=== PATIENT | female | born 1960 ===

== ENCOUNTER 2020-10-17 02:46 | Inpatient (IN) | payer MEDICAID ==
[~2020-10-17] VITALS: Ht 170.2 cm; Wt 78.0 kg
--- NOTE | 2020-10-17 03:05 | NUR ---
Note cam in EDM - 10/17/20 at 0306 by [email or web address] Patient is SLEEPING comfortably in bed. Bed in lowest, rails engaged, call light on lap. Vital Signs within normal limits. WCTM. AWAITING TO BE BROUGHT TO FLOOR.
[2020-10-17] MEDS ORDERED: NALOXONE 1 MG/ML, 2ML ONE (03:13)
--- NOTE | 2020-10-17 03:19 | NUR ---
ARVIND AFTER BEING FOUND IN CAR AT THE [facility]. PT WAS FOUND ALTERED AND DELISUIONAL. PT ABLE TO ANSWER QUESTIONS ABOUT HER HEALTH HISTORY BUT DOES NOT KNOW WHERE SHE IS OR THE DATE. PT ALSO STATES SHE IS ON 3 L OXYGEN FOR HX OF COPD AND WAS FOUND WITH NO O2 BUT A TANK WAS NEXT TO HER. UPON ARRIVAL TO ER PT BECAME HYPOTENSIVE AND LETHARGIC. DR BARTLETT AT BEDSIDE WITH US FOR EXAM, 2 PIV ESTABLISHED AND 1L NS BOLUS GIVEN THROUGH PRESSURE BAG. NARCAN GIVEN, PT NOW NORMAL TENSIVE AND MORE RESPONSIVE. VERBAL ORDERS FOR ZOFRAN FRM DR BARTLETT.
[2020-10-17] MEDS ORDERED: ONDANSETRON 2MG/ML, 2ML ONE (03:20)
[2020-10-17] MEDS ORDERED: SODIUM CHLORIDE 0.9% 1,000ML IVBOLUS ONE (03:30)
[2020-10-17 03:31] LABS: BASOPHILS % (AUTO) 0 % (0-1); EOSINOPHILS % (AUTO) 0 % (1-7); LYMPHOCYTES % (AUTO) 9 % (22-44); MEAN CORPUSCULAR HEMOGLOBIN 32.2 pg (27.0-34.8); MEAN CORPUSCULAR HGB CONC 34.7 g/dL (32.4-35.8); MEAN PLATELET VOLUME 7.5 fL (7.4-10.4); MONOCYTES % (AUTO) 17 % (2-9); NEUTROPHILS % (AUTO) 74 % (42-75); PLATELET COUNT 316 x10^3/uL (130-400); RED BLOOD COUNT 4.71 x10^6/uL (3.82-5.3); RED CELL DISTRIBUTION WIDTH 13.7 % (9.6-15.2)
--- NOTE | 2020-10-17 03:37 | NUR ---
pt to ct
[2020-10-17 03:46] LABS: D-DIMER 0.79 ug/mlFEU (0.00-0.52); INTERNATIONAL NORMALIZED RATIO 1.02 (0.93-1.1); MD NO; PROTHROMBIN TIME 10.9 Seconds (9.6-11.5)
[2020-10-17 03:47] LABS: ALBUMIN 3.9 g/dL (3.4-5.0); ANION GAP 9 mmol/L (5-15); CALCIUM 9.7 mg/dL (8.5-10.1); CHLORIDE 107 mmol/L (98-107); SALICYLATE LEVEL 7.5 mg/dL (2.8-20.0)
[2020-10-17 03:51] LABS: ALANINE AMINOTRANSFERASE 41 U/L (12-78); ALKALINE PHOSPHATASE 101 U/L (45-117); BILIRUBIN,TOTAL 0.8 mg/dL (0.2-1.0); CREATININE 3.21 mg/dL (0.55-1.02); TOTAL PROTEIN 8.4 g/dL (6.4-8.2); TROPONIN I < 0.015 ng/mL (0.000-0.045)
[2020-10-17] MEDS ORDERED: DEXTROSE 50%, 50ML SYRINGE IVPush ONE (04:30)
[2020-10-17] MEDS ORDERED: INSULIN REGULAR 100 UNITS/ML, 3ML VIAL IVPush ONE (04:30)
[2020-10-17] MEDS ORDERED: SODIUM BICARB 8.4%, 50ML SYRINGE IVPush ONE (04:30)
[2020-10-17] MEDS ORDERED: CALCIUM CHLORIDE 10%, 10ML SYR IVPush ONE (04:30)
[2020-10-17] MEDS ORDERED: OMNIPAQUE 350 MG/ML, 75ML BOTTLE ONE (04:47)
[2020-10-17] MEDS ORDERED: DEXTROSE 50%, 50ML SYRINGE ONE (05:09)
[2020-10-17] MEDS ORDERED: SODIUM BICARB 8.4%, 50ML SYRINGE ONE (05:09)
[2020-10-17] MEDS ORDERED: CALCIUM CHLORIDE 10%, 10ML SYR ONE (05:09)
[2020-10-17] MEDS ORDERED: INSULIN SINGLE DOSE, ER ONE (05:09)
[2020-10-17] MEDS ORDERED: ONDANSETRON 2MG/ML, 2ML IVPush ONE (05:30)
[2020-10-17] MEDS ORDERED: NALOXONE 1 MG/ML, 2ML IVPush ONE (05:30)
--- NOTE | 2020-10-17 06:04 | NUR ---
PT LETHARGIC, AROUSABLE TO NAME. RESP EVEN AND UNLABORED
[2020-10-17] MEDS: PLEASE ENTER ALLERGIES MC SCH ×3 (07:00→11:01)
[2020-10-17] MEDS ORDERED: ACETAMINOPHEN 325 MG TABLET PO PRN (07:00)
[2020-10-17] MEDS ORDERED: SODIUM CHLORIDE 0.9% 1,000 ML IV SCH (07:00)
--- NOTE | 2020-10-17 07:06 | NUR ---
per ems report, [facility] has pts ID card. they recieved a call on scene when they were with this pt and took off with ID. Info passed on in bedside report to Conner ROLLINS.
--- NOTE | 2020-10-17 07:13 | NUR ---
Report received, bedside pt assessment with meringuer RN completed and US tech finishing up exam and lab at bedside for draw. Pt drowsy and VSS at t this time. Orders noted, lab results and radiology results reviewed for those done last night and posted, and pt needs UA sample sent when able/awaiting bed assignement on Med/Tele floor.
--- NOTE | 2020-10-17 07:48 | NUR ---
Pt found with jeans half one and incontinence brief in use with moderate amount present. Pericare completed and pt disrobed. Placed on chucks pad and repositioned in bed with HOB elevated. Full assessment completed. Report given via telephone to RIA De [place] and pt readied for transfer to floor.
[2020-10-17 07:54] LABS: TROPONIN I < 0.015 ng/mL (0.000-0.045)
[2020-10-17 08:06] VITALS: BP 133/81
[2020-10-17] MEDS: HEPARIN 5,000 UNITS/ML, 1ML SQ SCH ×2 (12:06→19:53)
[2020-10-17 12:27] LABS: MICROSCOPIC NOT IND
[2020-10-17 12:28] VITALS: BP 119/81
[2020-10-17 12:37] LABS: CHLORIDE,URINE RANDOM 68 mmol/L; POTASSIUM,URINE RANDOM 64 mmol/L; SODIUM,URINE RANDOM 49 mmol/L
[2020-10-17 12:39] LABS: CREATINE KINASE, TOTAL 513 U/L (26-192); TROPONIN I < 0.015 ng/mL (0.000-0.045)
[2020-10-17 12:41] LABS: AMPHETAMINE SCREEN, URINE Positive (Negative); BARBITURATE SCREEN, URINE Negative (Negative); BENZODIAZEPINE SCREEN, URINE Negative (Negative); CANNABINOID SCREEN, URINE Negative (Negative); COCAINE SCREEN, URINE Negative (Negative); METHADONE SCREEN, URINE Negative (Negative); OPIATE SCREEN, URINE Negative (Negative)
[2020-10-17 12:46] LABS: ANION GAP 6 mmol/L (5-15); CHLORIDE 109 mmol/L (98-107); CREATININE 2.16 mg/dL (0.55-1.02)
[2020-10-17] MEDS: SODIUM CHLORIDE 0.9% 1,000 ML IV SCH (15:50)
[2020-10-17] MEDS: ALBUTEROL/IPRATROPIUM 2.5MG/0.5MG, 3 ML NPPB SCH ×2 (16:18→20:36)
[2020-10-17 20:33] VITALS: BP 127/82
[2020-10-18 01:17] VITALS: BP 125/81
[2020-10-18] MEDS: SODIUM CHLORIDE 0.9% 1,000 ML IV SCH ×3 (02:11→21:28)
[2020-10-18] MEDS: HEPARIN 5,000 UNITS/ML, 1ML SQ SCH ×3 (04:04→21:22)
[2020-10-18 05:25] LABS: CHLORIDE 108 mmol/L (98-107)
[2020-10-18 05:27] LABS: BASOPHILS % (AUTO) 0 % (0-1); EOSINOPHILS % (AUTO) 3 % (1-7); LYMPHOCYTES % (AUTO) 18 % (22-44); MEAN CORPUSCULAR HEMOGLOBIN 32.1 pg (27.0-34.8); MEAN CORPUSCULAR HGB CONC 33.9 g/dL (32.4-35.8); MEAN PLATELET VOLUME 7.2 fL (7.4-10.4); MONOCYTES % (AUTO) 13 % (2-9); NEUTROPHILS % (AUTO) 66 % (42-75); PLATELET COUNT 209 x10^3/uL (130-400); RED BLOOD COUNT 3.83 x10^6/uL (3.82-5.3); RED CELL DISTRIBUTION WIDTH 13.9 % (9.6-15.2)
[2020-10-18 05:34] LABS: ALANINE AMINOTRANSFERASE 29 U/L (12-78); ALKALINE PHOSPHATASE 79 U/L (45-117); ANION GAP 6 mmol/L (5-15); BILIRUBIN,TOTAL 0.8 mg/dL (0.2-1.0); CHOL/HDL RATIO 2.3; CHOLESTEROL, TOTAL 156 mg/dL (140-239); CREATININE 1.09 mg/dL (0.55-1.02); HDL CHOL % 44 % (28-40); HDL CHOLESTEROL (DIRECT) 68 mg/dL (40-60); LDL CHOLESTEROL,CALCULATED 75 mg/dL (54-169); LDL/HDL RATIO 1.1 (0.5-3.0); TOTAL PROTEIN 6.6 g/dL (6.4-8.2); TRIGLYCERIDES 65 mg/dL (50-200); VLDL CHOLESTEROL 13 mg/dL (0-25)
[2020-10-18 05:40] LABS: MD NO
[2020-10-18 06:53] VITALS: BP 157/89
[2020-10-18] MEDS ORDERED: SODIUM CHLORIDE 0.9% 1,000 ML IV SCH (07:00)
[2020-10-18] MEDS: ALBUTEROL/IPRATROPIUM 2.5MG/0.5MG, 3 ML NPPB SCH ×4 (07:31→20:00)
[2020-10-18] MEDS ORDERED: LORazepam 1MG TABLET PO PRN ×4 (12:30)
[2020-10-18] MEDS ORDERED: LORazepam 2 MG/ML, 1ML IV PRN ×5 (12:30)
[2020-10-18] MEDS: LORazepam 0.5MG TABLET PO PRN ×2 (12:45→21:22)
[2020-10-18 13:35] VITALS: BP 142/82
[2020-10-18 19:16] VITALS: BP 168/89
[2020-10-19 02:19] VITALS: BP 150/74
[2020-10-19 04:36] LABS: BASOPHILS % (AUTO) 1 % (0-1); EOSINOPHILS % (AUTO) 3 % (1-7); LYMPHOCYTES % (AUTO) 15 % (22-44); MEAN CORPUSCULAR HEMOGLOBIN 32.1 pg (27.0-34.8); MEAN CORPUSCULAR HGB CONC 33.8 g/dL (32.4-35.8); MEAN PLATELET VOLUME 7.3 fL (7.4-10.4); MONOCYTES % (AUTO) 12 % (2-9); NEUTROPHILS % (AUTO) 70 % (42-75); PLATELET COUNT 211 x10^3/uL (130-400); RED BLOOD COUNT 3.74 x10^6/uL (3.82-5.3); RED CELL DISTRIBUTION WIDTH 13.5 % (9.6-15.2)
[2020-10-19 04:42] LABS: MD NO
[2020-10-19 04:45] LABS: ANION GAP 5 mmol/L (5-15); CALCIUM 8.8 mg/dL (8.5-10.1); CHLORIDE 106 mmol/L (98-107); CREATININE 0.74 mg/dL (0.55-1.02)
[2020-10-19 06:13] VITALS: BP 167/94
[2020-10-19] MEDS: HEPARIN 5,000 UNITS/ML, 1ML SQ SCH (06:13)
[2020-10-19] MEDS: ALBUTEROL/IPRATROPIUM 2.5MG/0.5MG, 3 ML NPPB SCH (08:05)
== END 2020-10-19 10:37 | disposition left against medical advice (07) | DRG 52 ==
LOC: ED 04:08 → EDIP 06:22 → 4WST 07:56
PROVIDERS: ADMIT Hospitalist; ATTEND Hospitalist
DX: G93.41 Metabolic encephalopathy (principal); N17.0 Acute kidney failure with tubular necrosis; R57.1 Hypovolemic shock; E86.0 Dehydration; E87.5 Hyperkalemia; E87.6 Hypokalemia; F17.200 Nicotine dependence, unspecified, uncomplicated; F19.90 Other psychoactive substance use, unspecified, uncomplicated; I10 Essential (primary) hypertension; Z20.822 Contact with and (suspected) exposure to COVID-19; J44.9 Chronic obstructive pulmonary disease, unspecified; R09.02 Hypoxemia; Z82.3 Family history of stroke; Z82.49 Family history of ischemic heart disease and other diseases of the circulatory system; Z92.3 Personal history of irradiation; Z53.29 Procedure and treatment not carried out because of patient's decision for other reasons
CPT/HCPCS: 36415; 70450; 71045; 71275; 76770; 80048; 80053; 80061; 80299; 80307; 80320; 80329; 81003; 82140; 82436; 82550; 82607; 82962; 83605; 83690; 83735; 83880; 84100; 84133; 84300; 84439; 84443; 84484; 84702; 84703; 85025; 85379; 85610; 93005; 94640; 96374; 96375; 99291; G0378; J1644; J1815; J2405; Q9967; U0005; 92523-GN; G0480; J2310; J7030; U0003